=== PATIENT | female | born 1980 | race Two or more races ===

== ENCOUNTER 2018-01-12 09:51 | Emergency (ER) | payer SELFPAY ==
[~2018-01-12] VITALS: Ht 144.8 cm; Wt 48.1 kg
[~2018-01-12 09:51] MED LIST: DIVA500T17 PO; FERR325T14 PO; FOLI1TAB16 PO; GABA-586 PO; HYDR25TA PO; LAMO200T2 PO; LOMOTRIGINE; POTA20TA82 PO; PROM25TA10 PO; QUET50TA PO; SERT100T PO; TRAZ-86 PO; VIT1TABL PO; VITAMIN B1; divalproex; ferrous sulfate; folic acid; gabapentin; hydroxyzine; melatonin; potassium; promethazine; quetiapine; zoloft
[2018-01-12 10:11] VITALS: BP 87/57
--- NOTE | 2018-01-12 10:52 | PHYS DOC ---
Past Medical History Past Medical History: Alcoholism, Anxiety, Depression, Seizure, Other Additional Past Medical Histor: PTSD Past Surgical History: Other Additional Past Surgical Histo: hip surgery Alcohol Use: Sober Additional Information: sober for 4 months Drug Use: None Adult General Chief Complaint Chief Complaint: SUTURE/STAPLE REMOVAL [facility] HPI Patient is a 37 year old female who presents with sutures placed in the left cheek one month ago. The wound is healed and sutures are easily removed. There is no signs of infection or redness or drainage. Patient is afebrile and denies having any fevers. Patient denies any pain. Review of Systems Review of Systems Constitutional: Denies fever or chills [] Eyes: Denies change in visual acuity, redness, or eye pain [] HENT: Denies nasal congestion or sore throat [] Respiratory: Denies cough or shortness of breath [] Cardiovascular: No additional information not addressed in HPI [] GI: Denies abdominal pain, nausea, vomiting, bloody stools or diarrhea [] : Denies dysuria or hematuria [] Musculoskeletal: Denies back pain or joint pain [] Integument: Denies rash or skin lesions. Left cheek suture. [] Neurologic: Denies headache, focal weakness or sensory changes [] Endocrine: Denies polyuria or polydipsia [] All other systems were reviewed and found to be within normal limits, except as documented in this note. Allergies Allergies Allergies Coded Allergies Type Severity Reaction Last Updated Verified I S O L A T I O N *CONTACT* Allergy Unknown 12/21/17 Yes No Known Medication Allergies Allergy Unknown 12/21/17 Yes Physical Exam Physical Exam Constitutional: Well developed, well nourished, no acute distress, non-toxic appearance. [] HENT: Normocephalic, atraumatic, bilateral external ears normal, oropharynx moist, no oral exudates, nose normal. [] Eyes: PERRLA, EOMI, conjunctiva normal, no discharge. [] Neck: Normal range of motion, no tenderness, supple, no stridor. [] Cardiovascular:Heart rate regular rhythm, no murmur [] Lungs & Thorax: Bilateral breath sounds clear to auscultation [] Abdomen: Bowel sounds normal, soft, no tenderness, no masses, no pulsatile masses. [] Skin: Left cheek laceration. Warm, dry, no erythema, no rash. [] Back: No tenderness, no CVA tenderness. [] Extremities: No tenderness, no cyanosis, no clubbing, ROM intact, no edema. [] Neurologic: Alert and oriented X 3, normal motor function, normal sensory function, no focal deficits noted. [] Psychologic: Affect normal, judgement normal, mood normal. [] Current Patient Data Vital Signs Vital Signs Date Time Temp Pulse Resp B/P (MAP) Pulse Ox O2 Delivery O2 Flow Rate FiO2 01/12/18 10:11 97.8 89 16 87/57 (67) 98 Room Air 97.8 EKG EKG [] Radiology/Procedures Radiology/Procedures [] Course & Med Decision Making Course & Med Decision Making Patient is a 37 year old female who presents with sutures placed in the left cheek one month ago. The wound is healed and sutures are easily removed. There is no signs of infection or redness or drainage. Patient is afebrile and denies having any fevers. Patient denies any pain. Patient has 3 sutures that are taken out easily. There is no drainage from the wound and the wound is healed. She is alert and oriented. Patient denies any pain. Patient is told to follow- up with her primary care if needed. Staff Physician Addendum: I was working in the ER during the course of this patient's visit. I was available for consultation as needed, but I was not directly involved in the care of this patient. [] Dragon Disclaimer Dragon Disclaimer This electronic medical record was generated, in whole or in part, using a voice recognition dictation system. Departure Departure Impression: Primary Impression: Visit for suture removal Disposition: HOME, SELF-CARE Condition: STABLE Referrals: UNKNOWN PCP NAME (PCP) Patient Instructions: Suture Removal Additional Instructions: Follow up with your primary care if needed. Scripts No Active Prescriptions or Reported Meds INDY DWYER APRN Jan 12, 2018 10:52 TAMIKO POE MD Jan 16, 2018 18:10
== END 2018-01-12 10:56 | disposition home or self-care (01) ==
LOC: ER 09:51
DX: S01.412D Laceration without foreign body of left cheek and temporomandibular area, subsequent encounter (principal); F32.9 Major depressive disorder, single episode, unspecified; F41.9 Anxiety disorder, unspecified; Z91.041 Radiographic dye allergy status; X58.XXXD Exposure to other specified factors, subsequent encounter
CPT/HCPCS: 99281

== ENCOUNTER 2018-02-09 17:21 | Emergency (ER) | payer MEDICAID ==
[~2018-02-09] VITALS: Ht 147.3 cm; Wt 52.2 kg
[2018-02-09 17:50] VITALS: BP 89/50
--- NOTE | 2018-02-09 18:19 | RAD ---
Single view pelvis and two-view left hip dated 02/09/2018. No comparison available. CLINICAL INDICATION: Pain after fall. FINDINGS: Single AP view pelvis shows normal bony alignment. No displaced fracture. Pelvic ring is intact. Mild hypertrophic change of the bilateral SI joint. Mild hypertrophic change of the pubic symphysis. 2 views left hip show surgical fixation rods at the proximal left femur. No evidence of hardware complication. Alignment is anatomic. No displaced fracture. No periostitis or bone destruction. IMPRESSION: 1. No acute radiographic abnormality. 2. Postsurgical changes proximal left femur. Electronically signed by: Miguelito Solorio MD (02/09/2018 6:15 PM) [facility]
[2018-02-09] MEDS ORDERED: HYDR-971 PO (18:26)
--- NOTE | 2018-02-09 18:26 | PHYS DOC ---
Past Medical History Past Medical History: Alcoholism, Anxiety, Depression, Seizure, Other Additional Past Medical Histor: PTSD Past Surgical History: Hysterectomy, Other Additional Past Surgical Histo: LEFT HIP Alcohol Use: Sober Drug Use: None Adult General Chief Complaint Chief Complaint: HIP PAIN HPI HPI Patient is a 37 year old female who presents with left chest pain since 2 days ago when she slipped and fell on some ice. Patient states she's been taking some Advil and that she can walk on the left side but is limping. Review of Systems Review of Systems Constitutional: Denies fever or chills [] Eyes: Denies change in visual acuity, redness, or eye pain [] HENT: Denies nasal congestion or sore throat [] Respiratory: Denies cough or shortness of breath [] Cardiovascular: No additional information not addressed in HPI [] GI: Denies abdominal pain, nausea, vomiting, bloody stools or diarrhea [] : Denies dysuria or hematuria [] Musculoskeletal: Denies back pain or left hip joint pain [] Integument: Denies rash or skin lesions [] Neurologic: Denies headache, focal weakness or sensory changes [] Endocrine: Denies polyuria or polydipsia [] All other systems were reviewed and found to be within normal limits, except as documented in this note. Allergies Allergies Allergies Coded Allergies Type Severity Reaction Last Updated Verified I S O L A T I O N *CONTACT* Allergy Unknown 12/21/17 Yes No Known Medication Allergies Allergy Unknown 12/21/17 Yes Physical Exam Physical Exam Constitutional: Well developed, well nourished, no acute distress, non-toxic appearance. [] HENT: Normocephalic, atraumatic, bilateral external ears normal, oropharynx moist, no oral exudates, nose normal. [] Eyes: PERRLA, EOMI, conjunctiva normal, no discharge. [] Neck: Normal range of motion, no tenderness, supple, no stridor. [] Cardiovascular:Heart rate regular rhythm, no murmur [] Lungs & Thorax: Bilateral breath sounds clear to auscultation [] Abdomen: Bowel sounds normal, soft, no tenderness, no masses, no pulsatile masses. [] Skin: Warm, dry, no erythema, no rash. [] Back: No tenderness, no CVA tenderness. [] Extremities: Left hip tenderness, bruising, egg sized hematoma, Lateral bruising to thigh, no cyanosis, no clubbing, ROM intact, no edema. [] Neurologic: Alert and oriented X 3, normal motor function, normal sensory function, no focal deficits noted. [] Psychologic: Affect normal, judgement normal, mood normal. [] Current Patient Data Vital Signs Vital Signs Date Time Temp Pulse Resp B/P (MAP) Pulse Ox O2 Delivery O2 Flow Rate FiO2 02/09/18 17:50 98.3 83 16 89/50 (63) 96 Room Air 98.3 EKG EKG [] Radiology/Procedures Radiology/Procedures [] Impressions: [id number] [place] [address] IMAGING REPORT Signed PATIENT: FELIX BRITO ACCOUNT: [id number] : 1980 LOCATION: ER AGE: 37 SEX: F EXAM STATUS: REG ER ORD. PHYSICIAN: INDY DWYER APRN REASON: FALL PROCEDURE: HIP LEFT 2V WITH PELVIS Single view pelvis and two-view left hip dated 02/09/2018. No comparison available. CLINICAL INDICATION: Pain after fall. FINDINGS: Single AP view pelvis shows normal bony alignment. No displaced fracture. Pelvic ring is intact. Mild hypertrophic change of the bilateral SI joint. Mild hypertrophic change of the pubic symphysis. 2 views left hip show surgical fixation rods at the proximal left femur. No evidence of hardware complication. Alignment is anatomic. No displaced fracture. No periostitis or bone destruction. IMPRESSION: 1. No acute radiographic abnormality. 2. Postsurgical changes proximal left femur. Electronically signed by: Kim Solorio MD (02/09/2018 6:15 PM) [facility] DICTATED and SIGNED BY: KIM SOLORIO MD DATE: 02/09/181813 Course & Med Decision Making Course & Med Decision Making Patient is a 37 year old female who presents with left chest pain since 2 days ago when she slipped and fell on some ice. Patient states she's been taking some Advil and that she can walk on the left side but is limping. There is bruising from left hip down to mid lateral thigh. There is a large hematoma to the left hip that is ache size and tender to palpation but is skin colored. Patient is a little sore but does limp on the left side. Patient has a past left hip replacement on that left hip. Patient's other history is seizure, anxiety, depression, hysterectomy, alcoholism. Alert and oriented. Left pedal pulse present. She denies any numbness or tingling. Skin is pink warm and dry. There is no edema, or rotation. Patient's x-ray shows no acute findings. She is given prescription for [place] and is told that she needs to follow-up with her primary care next couple days. Patient rates her pain a 7 out of 10. Patient did drive herself to the ED. Dragon Disclaimer Dragon Disclaimer This electronic medical record was generated, in whole or in part, using a voice recognition dictation system. Departure Departure Impression: Primary Impression: Contusion, hip and thigh Disposition: 01 HOME, SELF-CARE Condition: STABLE Referrals: UNKNOWN PCP NAME (PCP) Patient Instructions: Contusion Additional Instructions: Follow up with your primary care provider. Take medication as prescribed. Scripts Hydrocodone/Apap 5-325 (NORCO 5-325 TABLET) 1 Each Tablet 1 TAB PO PRN Q6HRS PRN for PAIN, #10 TAB 0 Refills Prov: INYD DWYER APRN 02/09/18 Problem Qualifiers Primary Impression: Contusion, hip and thigh Encounter type: initial encounter Laterality: left Qualified Codes: S70.02XA - Contusion of left hip, initial encounter; S70.12XA - Contusion of left thigh, initial encounter INDY DWYER APRN Feb 09, 2018 18:26
== END 2018-02-09 18:43 | disposition home or self-care (01) ==
LOC: ER 17:21
DX: S70.02XA Contusion of left hip, initial encounter (principal); S70.12XA Contusion of left thigh, initial encounter; F10.20 Alcohol dependence, uncomplicated; Y90.9 Presence of alcohol in blood, level not specified; Z98.890 Other specified postprocedural states; Z91.041 Radiographic dye allergy status; W00.0XXA Fall on same level due to ice and snow, initial encounter; Y93.89 Activity, other specified; Y92.89 Other specified places as the place of occurrence of the external cause; Y99.8 Other external cause status
CPT/HCPCS: 73502; 99284